=== PATIENT | male | born 1995 | race African-American/Black ===

== ENCOUNTER 2017-11-19 22:12 | Emergency (ER) | payer SELFPAY ==
[~2017-11-19] VITALS: Ht 177.8 cm; Wt 77.0 kg
[2017-11-19 22:14] VITALS: BP 138/81
== END 2017-11-20 00:39 | disposition left against medical advice (07) ==
LOC: ER 22:41
DX: Z53.21 Procedure and treatment not carried out due to patient leaving prior to being seen by health care provider (principal)